=== PATIENT | male | born 1965 | race Caucasian/White ===

== ENCOUNTER 2020-04-29 12:25 | Emergency (ER) | payer MEDICAID, SELFPAY ==
[2020-04-29] VITALS (7 sets, daily range): BP systolic 150–212; BP diastolic 70–124; PULSE 86–106; RESP 16–20; TEMP 36.8–36.9; O2SAT 97–99; BMI 31.0
--- NOTE | 2020-04-29 12:43 | ECG_ITS ---
APPROVED REPORT Exam: Resting ECG HR:101 bpm ECG Measurements Heart Rate 101 AXES FL 162 P 37 QRSd 90 QRS 14 QT 368 T 22 QTc 477 Conclusion Sinus tachycardia Possible Left atrial enlargement Left ventricular hypertrophy Abnormal ECG Electronically signed by : Darren Rodgers, 04/30/2020 19:57:23
[2020-04-29 12:45] LABS: POC Glucose,Bedside 161 (70-110)
--- NOTE | 2020-04-29 12:49 | XR_ITS ---
PROCEDURE: XR CHEST PORTABLE CLINICAL HISTORY: ABD PAIN COMPARISON: No exams were available for comparison FINDINGS: The lung [place] are fairly well expanded and appear clear of infiltrate. There is no pleural fluid. There is a calcified granuloma right lower lobe. There is mild borderline cardiomegaly however there is no pulmonary congestion. IMPRESSION: No acute findings. Dictated by: Dr. Mario Andres MD 04/29/2020 13:26 Dr. Mario Andres MD in [place] 04/29/2020 13:26
--- NOTE | 2020-04-29 12:59 | [facility].EDABDPAI ---
ED Disposition Clinical Impression: Bulimia, Esophagitis Disposition: Home, Self-Care Condition on Discharge: Good Instructions: DI for Acute Abdominal Pain Additional Instructions: Follow-up follow-up with primary care later this week as well as podiatry when called for an appointment. Will also be given follow-up with gastroenterology for your esophageal symptoms. Return to the ED for any severe abdominal pain, fever, or any other worsening symptoms. Prescriptions: Famotidine [Acid Controller] 20 mg PO DAILY 14 Days #14 tab Prescription Printed Sucralfate [Carafate 1gm/10mL Susp] 1 gm PO BID 7 Days #14 udc Prescription Printed hydroCHLOROthiazide [HCTZ 12.5mg cap] 12.5 mg PO DAILY 30 Days #30 cap Prescription Printed Ondansetron [Zofran 4mg ODT] 4 mg PO TIDP PRN 3 Days #9 tab PRN Reason: Nausea Prescription Printed Referrals: PCP,No [Primary Care Provider] - Gary Yousif APRN [Advanced Practice Nurse] - Cande Leonard DPM [Staff Physician] - Antony Guan MD [Staff Physician] - Time of Disposition: 17:55 - Critical Care Critical Care Time: No Attestation: On , the high probability of a clinically significant, sudden or life threatening deterioration of the following system(s) required my full and direct attention, intervention and personal management. The time I documented below is in addition to time spent performing reported procedures but includes the following listed in this critical care notation. Medical Decision Making - Medical Records Medical records reviewed: Yes: I reviewed the patient's medical records. - Toño Inquiry Pt receiving controlled substance: No Vital Signs: 04/29/20 12:26 04/29/20 12:56 04/29/20 13:26 Temperature 98.5 F Temperature Source Oral Pulse Rate Pulse Rate [Radial] 106 H 96 H 96 H Respiratory Rate 20 Blood Pressure Blood Pressure [Right Arm] 206/112 H 204/116 H 212/124 H Blood Pressure Mean [Right Arm] 143 145 153 Blood Pressure Source Blood Pressure Source [Right Arm] Automatic Cuff Automatic Cuff Blood Pressure Position Blood Pressure Position [Right Arm] Sitting Sitting Sitting 02 Sat by Pulse Oximetry 98 97 97 Oxygen Delivery Method Room Air Room Air Room Air 04/29/20 15:00 04/29/20 15:30 04/29/20 16:00 Temperature Temperature Source Pulse Rate Pulse Rate [Radial] 86 104 H 101 H Respiratory Rate Blood Pressure Blood Pressure [Right Arm] 177/96 H 184/97 H 171/93 H Blood Pressure Mean [Right Arm] 123 126 119 Blood Pressure Source Blood Pressure Source [Right Arm] Automatic Cuff Automatic Cuff Automatic Cuff Blood Pressure Position Blood Pressure Position [Right Arm] Sitting Sitting Sitting 02 Sat by Pulse Oximetry 97 98 99 Oxygen Delivery Method Room Air Room Air Room Air 04/29/20 18:08 Temperature 98.2 F Temperature Source Oral Pulse Rate 87 Pulse Rate [Radial] Respiratory Rate 16 Blood Pressure 150/70 H Blood Pressure [Right Arm] Blood Pressure Mean [Right Arm] Blood Pressure Source Automatic Cuff Blood Pressure Source [Right Arm] Blood Pressure Position Sitting Blood Pressure Position [Right Arm] 02 Sat by Pulse Oximetry Oxygen Delivery Method Room Air - Lab Data Lab Results 04/29/20 12:38: POC Glucose 161 H 04/29/20 12:46: VBG pH 7.37, VBG pCO2 44.9, VBG pO2 44.3 H, VBG HCO3 25.3, VBG Total CO2 26.7, VBG O2 Saturation 82.1 H, VBG Base Excess 0.0 04/29/20 12:57: WBC 5.8, RBC 5.49, Hgb 13.7 L, Hct 43.6, MCV 79.4 L, MCH 25.0 L, MCHC 31.5 L, RDW 15.7, Plt Count 136 L, MPV 8.4, Neut % (Auto) 73.4, Lymph % (Auto) 19.8, Eaton % (Auto) 5.5, Eos % (Auto) 1.0, Baso % (Auto) 0.3, Neut # (Auto) 4.3, Lymph # (Auto) 1.2, Eaton # (Auto) 0.3, Eos # (Auto) 0.1, Baso # (Auto) 0.0 04/29/20 12:57: Sodium 137, Potassium 4.2, Chloride 98, Carbon Dioxide 31 H, Anion Gap 12.2, BUN 10, Creatinine 0.60 L, Estimated Creat Clear 190, Estimated GFR 140, Est GFR ( Amer) 170, Glucose 173 H
[2020-04-29 13:09] LABS: Basophils % 0.3 % (0.1-2.0); Eosinophils # 0.1 K/mm3 (0.0-0.4); Hematocrit 43.6 % (42.0-52.0); Hemoglobin 13.7 g/dL (14.1-18.0); Lymphocytes # 1.2 K/mm3 (0.7-4.5); Lymphocytes % 19.8 % (10-50); Mean Corpuscular HGB Conc 31.5 g/dL (31.8-35.4); Mean Corpuscular Volume 79.4 fl (80-94); Mean Platelet Volume 8.4 fl (7.4-10.4); Monocytes # 0.3 K/mm3 (0.1-1.0); Monocytes % 5.5 % (1.7-9.3); Neutrophils # 4.3 K/mm3 (1.8-7.8); Neutrophils % 73.4 % (37.0-80.0); Platelet Count 136 K/mm3 (142-424); Red Blood Count 5.49 M/mm3 (4.60-6.20); Red Cell Distribution Width 15.7 % (11.5-17.5); White Blood Count 5.8 K/mm3 (4.8-10.8)
[2020-04-29 13:15] LABS: Lactic Acid 1.5 mmol/L (0.7-2.1)
[2020-04-29 13:19] LABS: Chloride 98 mmol/L (98-107); Potassium 4.2 mmoL/L (3.5-5.1); Sodium 137 mmol/L (136-145)
[2020-04-29 13:22] LABS: Alanine Aminotransferase 183 U/L (12-78); Albumin Level 4.4 g/dl (3.5-5.0); Alkaline Phosphatase 193 U/L (38-126); Anion Gap 12.2 mEq/L (5-15); Aspartate Amino Transferase 124 U/L (17-59); Bilirubin,Total 1.5 mg/dl (0.2-1.3); Blood Urea Nitrogen 10 mg/dl (9-20); Carbon Dioxide 31 mmol/L (22.0-30.0); Creatinine Clearance Estimated 190 mL/min (50-200); Estimated Glomerular Filt Rate 140 ml/min (>60); GFR (African American) 170 ML/MIN (>60); Globulin 4.2 g/dL (1.3-3.2); Lipase 48 U/L (23-300); Total Protein,Serum 8.6 g/dl (6.3-8.2)
[2020-04-29 13:23] LABS: Calcium 9.8 mg/dl (8.4-10.2); Glucose 173 mg/dl (74-100); Phosphorous 3.4 mg/dl (2.5-4.5)
[2020-04-29 13:42] LABS: VBG HCO3 25.3 mmol/L (23-30); VBG Oxygen Saturation 82.1 % (50-70); VBG PCO2 44.9 mmol/L (35-51); VBG PH 7.37 mmol/L (7.31-7.41); VBG PO2 44.3 mmol/L (28-40); VBG Total CO2 26.7 mmol/L (23-27)
[2020-04-29 13:48] LABS: Procalcitonin 0.106 ng/mL (0.0-2.0)
[2020-04-29 14:07] LABS: Coronavirus 19 IgG Antibody Negative (Negative); Coronavirus 19 IgM Antibody Negative (Negative)
[2020-04-29 14:37] LABS: Microscopic, Urine URINE MICROSCOPIC (MICROSCOPIC)
[2020-04-29 15:12] LABS: Appearance,Urine CLEAR (Clear); Bilirubin,Urine Negative (Negative); Blood, Urine Negative (Negative); Color,Urine YELLOW (Yellow); Glucose,Urine (UA) Negative (Negative); Ketones,Urine TRACE (Negative); Leukocyte Esterase,Urine Negative (Negative); Nitrate,Urine Negative (Negative); PH,Urine 7.5 (5.0-8.5); Protein,Urine Negative (Negative); Specific Gravity, Urine 1.015 (1.005-1.030)
--- NOTE | 2020-04-29 15:16 | CT_ITS ---
Procedure: CT ABDOMEN PELVIS W CON Referring Doctor: Juan Alberto Gifford Patient Age:55Y CLINICAL INDICATION: persistent vomiting Abdominal pain. Nausea vomiting. Swelling feet and ankle, non compliant diabetes patient. Smoker COMPARISON: CR XR CHEST PORTABLE from 04/29/2020 TECHNIQUE: IV contrast: 75 cc Isovue 370 but no oral contrast Helical axial images obtained with sagittal and coronal reformats. All CT scans at the facility use one or more dose reduction, viz: automated exposure control, ma/kV adjustment per patient size (including targeted exams where dose is matched to indication, i.e. head), or iterative reconstruction technique. FINDINGS: Lower thorax: No acute finding 7 mm nodule posterior aspect right lower lobe axial image 3. Subtle stippled density adjacent this area may reflect stranding and scarring. Less likely subtle scant infiltrate. The remainder of the lung israel appear clear only minor basilar atelectasis left base but A 5 mm calcified granuloma seen anteriorly at the RML.. . Borderline/mild cardiomegaly.. Likely small hiatal hernia with slight generous thickness at the distal esophagus towards the GE junction. ABDOMEN: Liver: No masses. There is intrahepatic biliary ductal dilatation.. 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 There is also dilatation of the common hepatic duct and common bile duct. Recommend ultrasound to further evaluate but I see no stone along the course of the CBD. No mass at the at the ampullary. The Pancreas: Relatively atrophic pancreas. But no mass lesion. No inflammatory changes but no fluid collections Spleen: Enlarged 18 length but 19 cm AP, 10 cm wide The portal vein appears increased in size measure than 19 mm AP with increased of portal venous collaterals leading to the enlarged spleen. . Adrenals: unremarkable Kidneys/ureters: A few punctate calculi both kidneys none measuring over 3 mm in size. No obstructive uropathy. Right kidney. A 3 mm calcification at upper pole and lower pole but nonobstructive. Small less 1 cm cyst midportion right kidney. The mild fullness of the right pelvocaliceal system more so the left of most likely as baseline. Left kidney. 4.8 mm calculus at the lower pole left kidney. Nonobstructive. Ureters unremarkable bilaterally. Urinary bladder unremarkable but moderate-sized prostate slightly enlarged but no fluid pelvic basin but -GI tract ------ Small sliding hiatal hernia, with thickening distal esophagus, Stomach upper normal wall thickness at proximal stomach may reflect lack of distension Duodenal loop satisfactory. Normal caliber no dilatation. Small bowel but overall appears satisfactory with a a borderline dilated small bowel loops at the left abdomen axial image 60 8-71 coronal 28 Large bowel.. Slight increased solid stool throughout the large bowel. Particular note generous/prominent solid stool rectum may reflect mild constipation. No inflammatory changes involving large bowel.. No bowel dilatation The appendix is normal and visualized Peritoneum: No abnormal fluid collections. No obvious inflammatory changes. No free air. The the Lymph nodes: Enlarged inguinal lymph nodes bilaterally.. The largest lobulated lymph node on the right groin measuring up to 3 cm in length x 2.1 cm coronal image 24. Other smaller nodes are seen just above this but Left inguinal region with 2.6 cm length node (coronal image 28) and numerous generous but smaller nodes superior to this Vasculature: No evid
--- NOTE | 2020-04-29 16:01 | PC.NURSE ---
Notified rad of CT
[2020-04-29 16:18] LABS: Bacteria,Urine Trace /lpf; Squamous Epithelial Cell,Urine Occasional #/hpf (0-5); WBC,Urine Occasional #/hpf (0-3)
--- NOTE | 2020-04-29 16:26 | PC.NURSE ---
pt going for CT
--- NOTE | 2020-04-29 16:46 | PC.NURSE ---
pt returned from radiology
== END 2020-04-29 18:09 | disposition home or self-care (01) ==
PROVIDERS: Emergency Provider Student in an Organized Health Care Education/Training Program
DX: F50.2 Bulimia nervosa (principal); K20.90 Esophagitis, unspecified without bleeding; I10 Essential (primary) hypertension; E11.65 Type 2 diabetes mellitus with hyperglycemia; Z01.84 Encounter for antibody response examination; I87.8 Other specified disorders of veins; Z79.899 Other long term (current) drug therapy
CPT/HCPCS: 71045; 74177; 80053; 81001; 82803; 82962; 83605; 83690; 83735; 84100; 84145; 85025; 86328; 87040; 93005; 96365; 96375; 99284; J2405; Q9967